=== PATIENT | female | born 1955 | race Caucasian/White ===

== ENCOUNTER 2017-05-20 19:07 | Emergency (ER) | payer SELFPAY ==
[~2017-05-20] VITALS: Ht 177.8 cm; Wt 68.0 kg
[2017-05-20 19:35] VITALS: BP 181/86
[2017-05-20] MEDS ORDERED: predniSONE 20 MG TABLET PO ONE (20:00)
[2017-05-20] MEDS ORDERED: CEPH-264 PO (20:55)
[2017-05-20] MEDS ORDERED: PRED20TA PO (20:55)
--- NOTE | 2017-05-20 20:55 | PHYS DOC ---
Past Medical History Past Medical History: No Pertinent History Past Surgical History: No Surgical History Additional Information: PPD Alcohol Use: Occasionally Drug Use: None Adult General Chief Complaint Chief Complaint: SKIN RASH/ABSCESS [facility] HPI Patient is a 62 year old female presenting to the emergency department for evaluation of a rash on her bilateral hands and has been present for 3 days. She denies any known exposures except for possible poison marbella of for which she was treated more than 1 week ago. She says it is somewhat itchy but not painful. She says she does not see physicians but she denies any medical problems such as liver or renal disease. She has had no fevers chills nausea vomiting or other systemic symptoms. Review of Systems Review of Systems Constitutional: Denies fever or chills [] Respiratory: Denies cough or shortness of breath [] Cardiovascular: No additional information not addressed in HPI [] GI: Denies abdominal pain, nausea, vomiting, bloody stools or diarrhea [] Integument: + rash, skin lesions [] Neurologic: Denies headache, focal weakness or sensory changes [] Current Medications Current Medications Current Medications Medications (Trade) Dose Ordered Sig/Iris Start Time Stop Time Status Last Admin Dose Admin Prednisone (Prednisone) 60 mg 1X ONCE 05/20/17 20:00 05/20/17 20:01 DC 05/20/17 20:05 60 MG Allergies Allergies Allergies Coded Allergies Type Severity Reaction Last Updated Verified No Known Drug Allergies 05/20/17 No Physical Exam Physical Exam Constitutional: Well developed, well nourished, no acute distress, non-toxic appearance. [] Cardiovascular:Heart rate regular rhythm, no murmur [] Lungs & Thorax: Bilateral breath sounds clear to auscultation [] Abdomen: Bowel sounds normal, soft, no tenderness, no masses, no pulsatile masses. [] Skin: Patient has rash on bilateral palms that are raised pustular and have some serosanguineous drainage. Some of the lesions have some erythema to it although it is not seen painful when I press on it. She has approximate 3-4 second cap refill in all her digits. Her ring finger is quite swollen and edematous so her ring was cut off. Current Patient Data Vital Signs Vital Signs Date Time Temp Pulse Resp B/P (MAP) Pulse Ox O2 Delivery O2 Flow Rate FiO2 05/20/17 19:35 98.3 97 20 96 Room Air 98.3 EKG EKG [] Radiology/Procedures Radiology/Procedures [] Course & Med Decision Making Course & Med Decision Making Undifferentiated rash that appears to be more consistent with a contact dermatitis. We will start her on 21 day steroid taper. Patient told to follow with primary care provider in 4-5 days and come back to the ED sooner with worsening pain fevers vomiting or other general concerns. Dragon Disclaimer Dragon Disclaimer This electronic medical record was generated, in whole or in part, using a voice recognition dictation system. Departure Departure Impression: Primary Impression: Dermatitis Disposition: HOME, SELF-CARE Condition: STABLE Referrals: NO PCP (PCP) ELIECER GORDON MD Patient Instructions: Hand Dermatitis Additional Instructions: PUT EUCERIN CREAM ON YOUR HANDS. TAKE 25MG OF BENADRYL EVERY 6 HOURS. FOLLOW WITH A PCP AND/OR [facility]. Scripts Cephalexin (KEFLEX) 500 Mg Capsule 1 CAP PO BID, #14 CAP Prov: CARLOS ADKINS DO 05/20/17 Prednisone (PREDNISONE) 20 Mg Tablet 20 MG PO DAILY for 20 Days, #39 TAB TAKE 60MG FOR 6 DAYS THEN TAKE 40MG FOR 7 DAYS THEN TAKE 20MG FOR 7 DAYS Prov: CARLOS ADKINS DO 05/20/17 CARLOS ADKINS DO May 20, 2017 20:55
== END 2017-05-20 21:09 | disposition home or self-care (01) ==
LOC: ER 19:07
DX: L30.9 Dermatitis, unspecified (principal); F17.200 Nicotine dependence, unspecified, uncomplicated
CPT/HCPCS: 99284; J7512

== ENCOUNTER 2017-06-23 18:00 | Emergency (ER) | payer SELFPAY ==
[~2017-06-23] VITALS: Ht 167.6 cm; Wt 72.6 kg
[~2017-06-23 18:00] MED LIST: CEPH-264 PO; PRED20TA PO
[2017-06-23 18:17] VITALS: BP 177/91
--- NOTE | 2017-06-23 18:32 | PHYS DOC ---
Past Medical History Past Medical History: No Pertinent History Past Surgical History: Alcohol Use: Occasionally Drug Use: None Adult General Chief Complaint Chief Complaint: SKIN RASH/ABSCESS [facility] HPI Patient is a 62 year old patient states that the cancer primary much cleared up however now the rash has developed upper bilateral arms. She states that the areas have become very painful as well as itching and irritated. She states that they started having some drainage coming from the site. Patient states her tetanus immunization is up-to-date. Review of Systems Review of Systems Constitutional: Denies fever or chills [] Eyes: Denies change in visual acuity, redness, or eye pain [] HENT: Denies nasal congestion or sore throat [] Respiratory: Denies cough or shortness of breath [] Cardiovascular: No additional information not addressed in HPI [] GI: Denies abdominal pain, nausea, vomiting, bloody stools or diarrhea [] : Denies dysuria or hematuria [] Musculoskeletal: Denies back pain or joint pain [] Integument: Rash denies skin lesion Neurologic: Denies headache, focal weakness or sensory changes [] Endocrine: Denies polyuria or polydipsia [] Allergies Allergies Allergies Coded Allergies Type Severity Reaction Last Updated Verified No Known Drug Allergies 05/20/17 No Physical Exam Physical Exam Constitutional: Well developed, well nourished, no acute distress, non-toxic appearance. [] HENT: Normocephalic, atraumatic, bilateral external ears normal, oropharynx moist, no oral exudates, nose normal. [] Eyes: PERRLA, EOMI, conjunctiva normal, no discharge. [] Neck: Normal range of motion, no tenderness, supple, no stridor. [] Cardiovascular:Heart rate regular rhythm, no murmur [] Lungs & Thorax: Bilateral breath sounds clear to auscultation [] Skin: Warm, dry, no erythema, patient with erythematous noted on bilateral arms with pustular type areas as well noted. Patient does have clear to slightly serosanguineous drainage noted from the areas. Patient does have tenderness and touching areas. Extremities: No tenderness, no cyanosis, no clubbing, ROM intact, no edema. [] Neurologic: Alert and oriented X 3, normal motor function, normal sensory function, no focal deficits noted. [] Psychologic: Affect normal, judgement normal, mood normal. [] Current Patient Data Vital Signs Vital Signs Date Time Temp Pulse Resp B/P (MAP) Pulse Ox O2 Delivery O2 Flow Rate FiO2 06/23/17 18:17 98.1 100 18 177/91 (119) 97 Room Air 98.1 EKG EKG [] Radiology/Procedures Radiology/Procedures [] Course & Med Decision Making Course & Med Decision Making Pertinent Labs and Imaging studies reviewed. (See chart for details) [address] Basurto who will evaluate the patient as well. 1834 Dr Basurto in to evaluate the patient. Dr Basurto agrees with prednisone, bactrim and cream for the site. Patient was recommended to followup with dermatology within the next week. Signs and symptoms to return to the emergency department have been provided. Patient will be discharged home in stable condition. All questions and concerns have been answered at the bedside. Patient agrees with discharge instructions, treatment regimen and followup recommendations. Dragon Disclaimer Dragon Disclaimer This electronic medical record was generated, in whole or in part, using a voice recognition dictation system. Departure Departure Impression: Primary Impression: Atypical rash Disposition: HOME, SELF-CARE Condition: STABLE Referrals: NO PCP (PCP) Patient Instructions: Rash, [id number] Additional Instructions: Activity as tolerated. Keep the areas clean dry and cool this may help prevent irritation. Medications as prescribed. Ibuprofen 600-800 mg every 8 hours to help with pain and inflammation. Follow-up with a after school driver within the next week. Return back to emergency prior signs and symptoms of become worse. Scripts Triamcinolone Acetonide (TRIAMCINOLONE ACETONIDE 0.1% OINT) 15 Gm Oint...g. 1 JENNIFER TP BID for WOUND CARE, #1 TUBE 2 Refills MIX WITH EUCERIN DIRECTED BY PHYSICIAN Prov: DEBBIE ANDERSON APRN 06/23/17 Sulfamethoxazole/Trimethoprim (BACTRIM DS TABLET) 1 Each Tablet 1 TAB PO BID, #20 TAB Prov: DEBBIE ANDERSON APRN 06/23/17 Prednisone (PREDNISONE) 20 Mg Tablet 40 MG PO DAILY for 7 Days, #14 TAB Prov: DEBBIE ANDERSON APRN 06/23/17 DEBBIE ANDERSON APRN Jun 23, 2017 18:32
[2017-06-23] MEDS ORDERED: PRED20TA PO (18:50)
[2017-06-23] MEDS ORDERED: SULF1TAB24 PO (18:50)
[2017-06-23] MEDS ORDERED: TRIA15OI TP (18:50)
[2017-06-23] MEDS ORDERED: IBUPROFEN 800 MG TABLET. PO ONE (19:00)
== END 2017-06-23 19:00 | disposition home or self-care (01) ==
LOC: ER 18:00
DX: R21 Rash and other nonspecific skin eruption (principal)
CPT/HCPCS: 99283

== ENCOUNTER → 2021-09-19 | Outpatient (CLI) | payer MEDICARE ==
[2021-08-18 15:00] VITALS: BP 149/76
[~2021-09-19] MED LIST changes: +DOXY100T PO; +FERR325T72 PO; +IPRA4AER IH; +SULF1TAB24 PO; +TRIA15OI TP
--- NOTE | 2021-09-19 11:15 | RAD ---
EXAM: Dual modality PET-CT Scan DATE: 09/19/2021 RADIOPHARMACEUTICAL: 13 mCi F-18 fluorodeoxyglucose (FDG) IV. CLINICAL HISTORY: Lung mass. COMPARISON: CT dated 08/18/2021 and 08/16/2021. TECHNIQUE: Approximately 45 minutes after tracer administration, routine, attenuation-corrected Posit ananda Emission Tomography (PET) images were obtained from the level of the base of the skull through th e level of the mid thighs. Tomographic reconstructions are reviewed in coronal, transaxial and sagitt al planes. Non-contrast CT imaging was performed for attenuation correction and localization purpose s only. These images do not constitute a diagnostic-quality CT examination and were not used to diag nose disease independently of the PET images. The blood glucose level was 100 mg/dL at the time of FDG administration. *One or more of the following individualized dose reduction techniques were utilized for this examina tion: 1. Automated exposure control. 2. Adjustment of the mA and/or kV according to patient size. 3. Use of iterative reconstruction technique. FINDINGS: There is a 5.3 cm radiotracer avid right upper lobe pulmonary mass with a maximum SUV of 23 .8, consistent with primary neoplasm. There is mild nonspecific radiotracer activity within SUV of 2. 8 within a 1.8 cm nodule along the anterior mediastinum to the right of midline, likely representing a lymph node. There is no additional mediastinal or hilar lymph node with radiotracer activity above the blood pool. There is intense radiotracer activity within SUV of 26.1 within a 2.7 cm soft tissue density lesion w ithin the lumen of the distal transverse colon. No additional abnormal radiotracer activity is seen. The CT portion of the exam demonstrates a 5.3 cm right upper lobe pulmonary mass. There is a 1.8 cm a nterior mediastinal nodule to the right of midline, possibly due to a lymph node. There are nonspecif ic right paratracheal and precarinal lymph nodes measuring up to 1.4 cm. There is a nonspecific preva scular lymph node measuring 1.5 cm. There is pulmonary emphysema. There is no infiltrate, pleural eff usion or pneumothorax. There is a moderate hiatal hernia. The heart is normal in size. There are few subcentimeter hypodense lesions within the liver, the largest of which measures 8 mm wi thin the left hepatic lobe. The gallbladder, pancreas, spleen, adrenal glands and kidneys are unremar kable. There is no appendicitis. The appendix is prominent in caliber. However, there is no wall thic kening or surrounding inflammatory stranding. There is a moderate to large amount of colonic stool. T here is no evidence of bowel obstruction. The urinary bladder is unremarkable. There are uterine fibr oids. No adnexal lesion is seen. There is calcified atherosclerotic plaque involving the aorta. There is no aneurysm. There is no pathologically enlarged mesenteric or retroperitoneal lymph node. The visualized portions of the brain are unremarkable. There is mild right maxillary sinus mucosal th ickening. There is no neck lymphadenopathy. There are degenerative changes throughout the spine. Ther e is no acute or suspicious osseous finding. IMPRESSION: 1. 5.3 cm mass with an SUV of 23.8 within the right upper lobe, consistent with primary bronchogenic malignancy. 2. 1.8 cm suspected anterior mediastinal lymph node to the right of midline within SUV of 2.8. This i s nonspecific. 3. Focal intense radiotracer activity within SUV of 26.1 within the distal transverse colon. This nino ears to be associated with a 2.7 cm soft tissue density lesion within the lumen, not typical in appea larisa for physiologic bowel activity. This is concerning for malignancy. Correlate with colonoscopy f indings. 4. No additional abnormal radiotracer activity. Please refer to the findings section of the report fo r findings regarding the non-PET portion of the exam. Electronically signed by: Anitha Payton MD (09/19/2021 11:13 AM) [id number]
== END ==
LOC: PETSC 07:51
PROVIDERS: ATTEND Internal Medicine Pulmonary Disease
DX: C34.90 Malignant neoplasm of unspecified part of unspecified bronchus or lung (principal); R91.8 Other nonspecific abnormal finding of lung field; J43.9 Emphysema, unspecified; K76.9 Liver disease, unspecified
CPT/HCPCS: 78815; A9552